=== PATIENT | male | born 1965 | race African-American/Black ===

== ENCOUNTER 2018-05-19 20:48 | Emergency (ER) | payer OTHER ==
[2018-05-19 20:58] VITALS: BP 161/101
--- NOTE | 2018-05-19 22:24 | ED Physician Documentation ---
PD HPI LOWER EXT INJURY - Stated complaint Stated Complaint: FINGER LAC - Chief complaint Chief Complaint: Laceration PD PAST MEDICAL HISTORY - Past Surgical History Past Surgical History: No - Present Medications Home Medications: Ambulatory Orders Medication Instructions Recorded Confirmed HYDROcod/ACETAM 5/325 [Vicodin 1 - 2 ea PO Q6H PRN #15 tablet 11/03/13 5/325] No Known Home Medications [No 11/03/13 11/03/13 Known Home Medications] - Allergies Allergies/Adverse Reactions: Allergies Allergy/AdvReac Type Severity Reaction Status Date / Time No Known Drug Allergies Allergy Verified 11/03/13 17:38 - Social History Does the pt smoke?: No Smoking Status: Never smoker Does the pt drink ETOH?: No Does the pt have substance abuse?: No - Immunizations Immunizations are current?: Yes - POLST Patient has POLST: No Results - Vitals Vitals: Vital Signs - 24 hr 05/19/18 20:56 Temperature 36.1 C L Heart Rate 74 Respiratory 18 Rate Blood Pressure 161/101 H O2 Saturation 99 Oxygen O2 Source Room air PD MEDICAL DECISION MAKING - Sepsis Event Vital Signs: Vital Signs - 24 hr 05/19/18 20:56 Temperature 36.1 C L Heart Rate 74 Respiratory 18 Rate Blood Pressure 161/101 H O2 Saturation 99 Oxygen O2 Source Room air
--- NOTE | 2018-05-19 22:26 | ED Physician Documentation ---
PD HPI UPPER EXT INJURY - Stated complaint Stated Complaint: FINGER LAC - Chief complaint Chief Complaint: Laceration - History obtained from History obtained from: Patient, Family - History of Present Illness Location: Left, Finger Type of injury: Laceration Where injury occurred: Work Timing - onset: How many hours ago (3) Timing - details: Abrupt onset Worsened by: Moving, Palpating Similar symptoms before: Has not had sx before Recently seen: Not recently seen - Additonal information Additional information: Patient is a 52 year old male presenting to the emergency department for a finger laceration. patient states about three hours ago he cut it on an aircraft door. patient was able to wash his hands. Patient is up to date on his tetanus. Review of Systems Ten Systems: 10 systems reviewed and negative PD PAST MEDICAL HISTORY - Past Surgical History Past Surgical History: No - Present Medications Home Medications: Ambulatory Orders Medication Instructions Recorded Confirmed HYDROcod/ACETAM 5/325 [Vicodin 1 - 2 ea PO Q6H PRN #15 tablet 11/03/13 5/325] No Known Home Medications [No 11/03/13 11/03/13 Known Home Medications] - Allergies Allergies/Adverse Reactions: Allergies Allergy/AdvReac Type Severity Reaction Status Date / Time No Known Drug Allergies Allergy Verified 11/03/13 17:38 - Social History Does the pt smoke?: No Smoking Status: Never smoker Does the pt drink ETOH?: No Does the pt have substance abuse?: No - Immunizations Immunizations are current?: Yes - POLST Patient has POLST: No PD ED PE NORMAL - Vitals Vital signs reviewed: Yes - General General: Alert and oriented X 3 - HEENT HEENT: Atraumatic - Cardiac Cardiac: RRR - Respiratory Respiratory: No respiratory distress - Abdomen Abdomen: Non distended - Neuro Neuro: Alert and oriented X 3 PD ED PE EXPANDED - Extremities Extremities: Left finger(s) (2cm laceration of left finger) Results - Vitals Vitals: Vital Signs - 24 hr 05/19/18 20:56 Temperature 36.1 C L Heart Rate 74 Respiratory 18 Rate Blood Pressure 161/101 H O2 Saturation 99 Oxygen O2 Source Room air Procedures - Laceration (location) left third digit Length in cm: 2 Wound type: Linear Neurovascular status: Sensory intact, Motor intact, Vascular intact Wound Preparation: Other (soap and water) Skin layer closure: Dermabond, Steri strips Other: Patient tolerated well, No complications, Neurovascular intact, Tetanus UTD Complexity: Simple PD MEDICAL DECISION MAKING - ED course Complexity details: reviewed old records, reviewed results, re-evaluated patient , considered differential, d/w patient ED course: Patient was seen and examined at bedside. laceration was repaired as described above. Patient required no further inpatient work up and was stable for discharge with outpatient follow up. - Sepsis Event Vital Signs: Vital Signs - 24 hr 05/19/18 20:56 Temperature 36.1 C L Heart Rate 74 Respiratory 18 Rate Blood Pressure 161/101 H O2 Saturation 99 Oxygen O2 Source Room air Departure - Departure Disposition: Home, Self Care Clinical Impression: Laceration Condition: Good Instructions: ED Laceration Ext Skin Glue Follow-Up: Provider,Other [Primary Care Provider] - As Needed Comments: keep you wound clean and dry. you should monitor for signs of infection. you can take motrin or tylenol as needed for pain. you may return to the emergency department at any time for new, worsening or uncontrollable symptoms.
== END 2018-05-19 22:35 | disposition home or self-care (01) ==
LOC: ED 20:48
DX: S61.213A Laceration without foreign body of left middle finger without damage to nail, initial encounter (principal); W45.8XXA Other foreign body or object entering through skin, initial encounter; Y92.813 Airplane as the place of occurrence of the external cause; Y99.0 Civilian activity done for income or pay
CPT/HCPCS: 12001; 99283